=== PATIENT | male | born 1950 | race Caucasian/White ===

== ENCOUNTER → 2016-12-12 | Outpatient (CLI) | payer OTHER ==
[2013-07-03 11:29] VITALS: BP 91/77
[~2016-12-12] MED LIST: LEXISCAN IV ONE
== END ==
LOC: RAD 08:31
PROVIDERS: ATTEND Internal Medicine Cardiovascular Disease
DX: I25.10 Atherosclerotic heart disease of native coronary artery without angina pectoris (principal)
CPT/HCPCS: 78452; 93017; A4222; A9502; J2785

== ENCOUNTER → 2017-09-27 | Outpatient (CLI) | payer OTHER ==
[2013-07-03 11:29] VITALS: BP 91/77
== END ==
LOC: RAD 14:02
PROVIDERS: ATTEND Physician Assistant
DX: R07.89 Other chest pain (principal)
CPT/HCPCS: 93306

== ENCOUNTER 2018-05-12 16:56 | Inpatient (IN) ==
[2018-05-12] MEDS ORDERED: TORADOL 60 MG VIAL IM ONE (17:10)
[2018-05-12] MEDS ORDERED: TORADOL 60 MG VIAL ONE (17:11)
--- NOTE | 2018-05-12 17:15 | DR.GENAD ---
HPI Time Seen Time Seen by Provider: 05/12/18 17:09 PCP Primary Care Physician: ROSEMARIE Turk Complaint/Symptoms Chief Complaint:: PT STATES HE HAD A SYNCOPAL EPISODE IN BATHROOM THIS AFTERNOON WHICH LED HIM TO FALL ONTO HIS LEFT HIP. PT STATES HE PASSED COMPLETELY OUT BUT DOESN'T THINK HE WAS OUT LONG. PT C/O SEVERE PAIN INTO LEFT HIP RATED 10/10 Source History Provided: Patient Mode of Arrival Mode of Arrival: EMS Timing Onset of Chief Complaint: 05/12/18 PMH PMH Past Medical History: Yes Past Medical History: Coronary Artery Disease Past Medical History Comment: TIA, SYNCOPE Past Surgical History: Yes Surgical History: CABG/Valve Surgery and Cholecystectomy Past Surgical History Comment: RIGHT HAMMERTOE SURGERY, BACK SURGERY,HERNIA REPAIR Family History History of Family Medical Conditions: Yes Family Medical History: Cancer, [place], Coronary Artery Disease and Hypertension Social History Does patient currently use any type of tobacco product: No Have you used tobacco products in the last 12 months: No Type of Tobacco Use: None Does any household member use tobacco: No Alcohol Use: None Do you use any recreational Drugs:: No Lives With: Family Lives Where: Home infectious screening In the last 2 months have you had wt loss of >10#?: NO Have you had fever, night sweats or hemotysis?: No Have you traveled outside the country in the last 6 months?: No Isolation: Standard PE Vital Signs Vitals: Temperature 98.6 F Pulse Rate [Right] 76 Pulse Rate [Left Radial] 66 Pulse Rate 60 Respiratory Rate 18 Blood Pressure [Left Arm] 160/86 Blood Pressure [Right Arm] 178/84 Blood Pressure 122/73 O2 Sat by Pulse Oximetry 90 General Limitations: No Limitations General Appearance: Alert, In No Apparent Distress, Anxious and In Distress Head Head Exam: Normal Inspection Eyes Eye exam: Normal Appearance, PERRL, EOMI and Miosis ENT ENT Exam: Normal Exam, Normal Oropharynx, Mucous Membranes Moist, Mucous Membranes Dry and TM's Normal Bilaterally External Ear Exam: Normal External Inspection TM/Canal Exam: Bilateral: Normal Nose Exam: Normal Nose Exam and Abrasion Mouth Exam: Normal Inspection Throat Exam: Normal Inspection and Tonsillar Erythema Neck Neck Exam: Normal Inspection and Full ROM; negative Tenderness Chest Chest Inspection: Normal Inspection Respiratory Respiratory Exam: Normal Lung Sounds Bilat and Accessory Muscle Use Respiratory Exam: Bilateral: Clear to Auscultation Cardiovascular Cardiovascular Exam: Regular Rate and Normal Rhythm Abdominal Exam Abdominal Exam: Normal Inspection, Normal Bowel Sounds and Hyperactive Bowel Sounds Abdominal Tenderness: negative RUQ, RLQ and LUQ Extremities Extremities Exam: Tenderness (left hip) Back Back Exam: Normal Inspection Neurologic Neurological Exam: Alert and Oriented X3 Psychiatric Psychiatric Exam: Normal Affect and Normal Mood Skin Skin Exam: Warm, Dry, Intact, Normal Color and Rash COURSE Treatment Treatment: Toradol 60mg IM Consultation Called: 19:00 Consultation Comments: Dr Garcia agreed to admit for further evaluation and treatment ROR Labs Reviewed Laboratory Results Reviewed?: Yes Result Diagrams: 05/14/18 04:45 05/14/18 04:45 Laboratory: WBC 7.4 X10^3/uL (3.6-10.0) 05/14/18 04:45 RBC 3.75 X10^6/uL (4.7-6.0) L 05/14/18 04:45 Hgb 11.2 g/dL (13.5-18.0) L 05/14/18 04:45 Hct 31.8 % (42.0-54.0) L 05/14/18 04:45 MCV 84.9 fL (80.0-100.0) 05/14/18 04:45 MCH 30.0 pg (27.0-34.0) 05/14/18 04:45 MCHC 35.3 g/dL (33.0-35.0) H 05/14/18 04:45 RDW 13.6 % (11.6-16.5) 05/14/18 04:45 Plt Count 92 X10^3/uL (150.0-450.0) L 05/14/18 04:45 MPV 9.6 fL (7.4-11.0) 05/14/18 04:45 Neut % (Auto) 64.2 % (42.0-75.0) 05/14/18 04:45 Lymph % (Auto) 21.3 % (21.0-51.0) 05/14/18 04:45 Shannon % (Auto) 8.7 % (0.0-13.0) 05/14/18 04:45 Eos % (Auto) 4.8 % (0.9-2.9) H 05/14/18 04:45 Baso % (Auto) 1.0 % (0.2-1.0) 05/14/18 04:45 Neut # (Auto) 4.7 x10^3/uL (2.2-4.8) 05/14/18 04:45 Lymph # (Auto) 1.6 X10^3/uL (1.3-2.9) 05/14/18 04:45 Shannon # (Auto) 0.6 x10^3/uL (0.3-0.8) 05/14/18 04:45 Eos # (Auto) 0.4 x10^3/uL (0.0-0.2) H 05/14/18 04:45 Baso # (Auto) 0.1 X10^3/uL (0.0-0.1) 05/14/18 04:45 Absolute Nucleated RBC 0.0 /100WBC 05/14/18 04:45 INR Target Range - 05/13/18 21:25 INR 1.13 (0.8-1.3) 05/13/18 21:25 APTT 28.7 SECONDS (22.9-36.5) 05/13/18 21:25 PTT Comment - 05/13/18 21:25 Sodium 142 mmol/L (136-145) 05/14/18 04:45 Corrected Sodium 142 mmol/L (136-145) 05/14/18 04:45 Potassium 4.0 mmol/L (3.5-5.1) 05/14/18 04:45 Chloride 110 mmol/L (98-107) H 05/14/18 04:45 Carbon Dioxide 24.0 mmol/L (21-32) 05/14/18 04:45 BUN 11 mg/dL (7-18) 05/14/18 04:45 Creatinine 0.92 mg/dL (0.70-1.30) 05/14/18 04:45 Est GFR (MDRD) Af Amer > 60 (>60) 05/14/18 04:45 Est GFR (MDRD) Non-Af > 60 (>60) 05/14/18 04:45 Glucose 118 mg/dL (65-99) H 05/14/18 04:45 Calcium 8.0 mg/dL (8.5-10.1) L 05/14/18 04:45 Corrected Calcium 9.0 mg/dL (8.5-10.1) 05/14/18 04:45 Magnesium 1.9 mg/dL (1.7-2.9) 05/14/18 04:45 Total Bilirubin 0.40 mg/dL (0.2-1.0) 05/14/18 04:45 AST 14 Units/L (15-37) L 05/14/18 04:45 ALT 15 Units/L (12-78) 05/14/18 04:45 Alkaline Phosphatase 64 Units/L (46-116) 05/14/18 04:45 Creatine Kinase 105 Units/L (39-308) 05/13/18 21:25 CK-MB (CK-2) 1.1 ng/mL (0-4.0) 05/13/18 21:25 CK/CKMB % Calc 1.1 % (<4) 05/13/18 21:25 Troponin I < 0.02 ng/mL (0-1.5) 05/13/18 21:25 Total Protein 5.8 g/dL (6.4-8.2) L 05/14/18 04:45 Albumin 2.8 g/dL (3.4-5.0) L 05/14/18 04:45 Globulin 3.0 g/dL (2.5-4.5) 05/14/18 04:45 Albumin/Globulin Ratio 0.9 Ratio (1.1-2.1) L 05/14/18 04:45 Blood Type A POSITIVE 05/13/18 21:25 Antibody Screen Negative 05/13/18 21:25 Crossmatch See Detail 05/13/18 21:25 XRAY XRAY Findings: Fracture lesser trochanter left femur Diagnosis Discharge Problem: Closed fracture of lesser trochanter of left femur
[2018-05-12] MEDS ORDERED: TORADOL 60 MG VIAL IVP ONE (17:16)
[2018-05-12] MEDS ORDERED: NS 1000 ML 1,000 ML ONE (17:30)
[2018-05-12] MEDS: NS 1000 ML 1,000 ML IV SCH (17:49)
[2018-05-12 18:03] LABS: BASOPHILS # (AUTO) 0.1 X10^3/uL (0.0-0.1); BASOPHILS % (AUTO) 0.8 % (0.2-1.0); EOSINOPHILS # (AUTO) 0.2 x10^3/uL (0.0-0.2); EOSINOPHILS % (AUTO) 2.2 % (0.9-2.9); HEMATOCRIT 37.9 % (42.0-54.0); HEMOGLOBIN 13.5 g/dL (13.5-18.0); LYMPHOCYTES # (AUTO) 1.2 X10^3/uL (1.3-2.9); LYMPHOCYTES % (AUTO) 15.2 % (21.0-51.0); MEAN CORPUSCULAR HGB CONC 35.7 g/dL (33.0-35.0); MEAN CORPUSCULAR VOLUME 83.9 fL (80.0-100.0); MEAN PLATELET VOLUME 9.4 fL (7.4-11.0); MONOCYTES # (AUTO) 0.5 x10^3/uL (0.3-0.8); MONOCYTES % (AUTO) 6.1 % (0.0-13.0); NEUTROPHILS # (AUTO) 5.9 x10^3/uL (2.2-4.8); NEUTROPHILS % (AUTO) 75.7 % (42.0-75.0); PLATELET COUNT 131 X10^3/uL (150.0-450.0); RED BLOOD COUNT 4.51 X10^6/uL (4.7-6.0); RED CELL DISTRIBUTION WIDTH 13.6 % (11.6-16.5); WHITE BLOOD COUNT 7.9 X10^3/uL (3.6-10.0)
[2018-05-12 18:15] LABS: ALANINE AMINOTRANSFERASE 21 Units/L (12-78); ALBUMIN 3.7 g/dL (3.4-5.0); ALKALINE PHOSPHATASE 82 Units/L (46-116); ASPARTATE AMINO TRANSFERASE 17 Units/L (15-37); BLOOD UREA NITROGEN 13 mg/dL (7-18); CALCIUM 8.7 mg/dL (8.5-10.1); CARBON DIOXIDE 25.8 mmol/L (21-32); CHLORIDE 107 mmol/L (98-107); COR NA(FOR HYPERGLY) 144 mmol/L (136-145); CREATININE 1.29 mg/dL (0.70-1.30); SODIUM 143 mmol/L (136-145); TOTAL PROTEIN 6.7 g/dL (6.4-8.2); eGFR NON BLACK RACES 59 (>60)
--- NOTE | 2018-05-12 18:30 | RAD ---
Examination: Left femur, four views History: Fell Findings there is slight displacement and apparent fracture of the lesser trochanter of the femur. T his may be acute. The femoral head is in normal position. Narrowing of the joint space is compatible with age. Impression: Suspect acute minimally displaced fracture left lesser trochanter. Dedicated hip examinat ion has been requested and will be reported separately. Reported By:
--- NOTE | 2018-05-12 18:31 | RAD ---
Examination: Left hip, two views History: Fell Findings: There is an apparently acute fracture of the lesser trochanter of the femur with 6.0 mm dis placement of cortical fragment. The femoral head is in normal position. Degenerative narrowing of bonnie nt spaces present. Impression: Fracture lesser trochanter left femur. Reported By:
[2018-05-12] MEDS ORDERED: MORPHINE SULFATE INJ 4 MG ONE (18:43)
[2018-05-12] MEDS ORDERED: MORPHINE SULFATE INJ 4 MG IVP ONE (18:44)
[2018-05-12] MEDS: MORPHINE SULFATE INJ 4 MG IVP PRN (21:31)
[2018-05-12 23:06] VITALS: BMI 20.6
[2018-05-13] MEDS: NS 1000 ML 1,000 ML IV SCH ×5 (01:48→18:07)
[2018-05-13] MEDS: MORPHINE SULFATE INJ 4 MG IVP PRN ×5 (01:50→18:28)
[2018-05-13 13:57] LABS: CKMB % 1.3 % (<4); CREATINE KINASE 87 Units/L (39-308); CREATINE KINASE MB 1.1 ng/mL (0-4.0); TROPONIN I < 0.02 ng/mL (0-1.5)
[2018-05-13] MEDS: NEURONTIN CAP 100 MG PO SCH ×2 (14:14→21:23)
[2018-05-13] MEDS: PROzac PO SCH (14:14)
[2018-05-13] MEDS: TOPROL XL PO SCH (14:14)
[2018-05-13] MEDS ORDERED: ROBINUL ONE (14:53)
--- NOTE | 2018-05-13 17:21 | CT ---
HISTORY: Left hip fracture. Study: CT left hip without contrast Comparison: Left hip series dated May 12, 2018. Technique: Multiple axial images of the left hip without administration of IV contrast. Sagittal and coronal reformats were performed and reviewed. Dose reduction techniques including Automated Exposur e Control (AEC) and adjustment of mA and kV were utilized. Findings: Minimally displaced left intertrochanteric hip fracture. The left femoral head is within the acetabul um. Surrounding soft tissue swelling and hip effusion. Remaining osseous structures appear intact. Th e visualized soft tissues are unremarkable. IMPRESSION: Minimally displaced left intertrochanteric hip fracture. Reported By:
[2018-05-13] MEDS ORDERED: MORPHINE SULFATE INJ 4 MG IVP ONE (21:10)
[2018-05-13 21:45] LABS: BASOPHILS # (AUTO) 0.1 X10^3/uL (0.0-0.1); BASOPHILS % (AUTO) 0.8 % (0.2-1.0); EOSINOPHILS # (AUTO) 0.3 x10^3/uL (0.0-0.2); EOSINOPHILS % (AUTO) 4.4 % (0.9-2.9); LYMPHOCYTES # (AUTO) 0.9 X10^3/uL (1.3-2.9); LYMPHOCYTES % (AUTO) 12.5 % (21.0-51.0); MEAN CORPUSCULAR HEMOGLOBIN 30.1 pg (27.0-34.0); MEAN CORPUSCULAR HGB CONC 35.4 g/dL (33.0-35.0); MEAN CORPUSCULAR VOLUME 85.1 fL (80.0-100.0); MEAN PLATELET VOLUME 9.6 fL (7.4-11.0); MONOCYTES # (AUTO) 0.5 x10^3/uL (0.3-0.8); MONOCYTES % (AUTO) 7.1 % (0.0-13.0); NEUTROPHILS # (AUTO) 5.2 x10^3/uL (2.2-4.8); NEUTROPHILS % (AUTO) 75.2 % (42.0-75.0); PLATELET COUNT 103 X10^3/uL (150.0-450.0); RED CELL DISTRIBUTION WIDTH 13.8 % (11.6-16.5); WHITE BLOOD COUNT 6.9 X10^3/uL (3.6-10.0)
[2018-05-13 22:07] LABS: ALANINE AMINOTRANSFERASE 17 Units/L (12-78); ALBUMIN 3.3 g/dL (3.4-5.0); ALKALINE PHOSPHATASE 78 Units/L (46-116); ASPARTATE AMINO TRANSFERASE 15 Units/L (15-37); BLOOD UREA NITROGEN 14 mg/dL (7-18); CALCIUM 8.1 mg/dL (8.5-10.1); CARBON DIOXIDE 27.4 mmol/L (21-32); CHLORIDE 109 mmol/L (98-107); COR CA(FOR HYPOALB) 8.7 mg/dL (8.5-10.1); COR NA(FOR HYPERGLY) 145 mmol/L (136-145); CREATININE 1.12 mg/dL (0.70-1.30); SODIUM 144 mmol/L (136-145); TOTAL PROTEIN 6.7 g/dL (6.4-8.2); eGFR NON BLACK RACES > 60 (>60)
[2018-05-13] MEDS ORDERED: POTASSIUM CHL 40 MEQ/NS 0.45% 500 ML IV PRN (22:15)
[2018-05-13] MEDS ORDERED: POTASSIUM CHLORIDE LIQ 20 MEQ UDC PO PRN (22:15)
[2018-05-13] MEDS ORDERED: K-RIDER 10 MEQ/NS 100 ML 10 MEQ/100 ML BAG IV PRN (22:15)
[2018-05-13] MEDS ORDERED: POTASSIUM CHL 60 MEQ/NS 0.45% 500 ML IV PRN (22:15)
[2018-05-13] MEDS ORDERED: K-LYTE EFFERVESCENT PO PRN (22:15)
[2018-05-13] MEDS ORDERED: K-DUR TAB 20 MEQ PO ONE (22:18)
[2018-05-13 22:35] LABS: CKMB % 1.1 % (<4); CREATINE KINASE 105 Units/L (39-308); CREATINE KINASE MB 1.1 ng/mL (0-4.0); TROPONIN I < 0.02 ng/mL (0-1.5)
[2018-05-14] MEDS: MORPHINE SULFATE INJ 4 MG IVP PRN ×2 (01:23→05:30)
[2018-05-14] MEDS: NS 1000 ML 1,000 ML IV SCH ×3 (01:30→18:34)
[2018-05-14] MEDS: MAGNESIUM SULFATE 1 GRAM/100 mL PREMIX 1 GM/100 ML BAG IV PRN ×2 (04:00→05:30)
[2018-05-14 05:04] LABS: BASOPHILS # (AUTO) 0.1 X10^3/uL (0.0-0.1); EOSINOPHILS # (AUTO) 0.4 x10^3/uL (0.0-0.2); EOSINOPHILS % (AUTO) 4.8 % (0.9-2.9); HEMATOCRIT 31.8 % (42.0-54.0); HEMOGLOBIN 11.2 g/dL (13.5-18.0); LYMPHOCYTES # (AUTO) 1.6 X10^3/uL (1.3-2.9); LYMPHOCYTES % (AUTO) 21.3 % (21.0-51.0); MEAN CORPUSCULAR HGB CONC 35.3 g/dL (33.0-35.0); MEAN CORPUSCULAR VOLUME 84.9 fL (80.0-100.0); MEAN PLATELET VOLUME 9.6 fL (7.4-11.0); MONOCYTES # (AUTO) 0.6 x10^3/uL (0.3-0.8); MONOCYTES % (AUTO) 8.7 % (0.0-13.0); NEUTROPHILS # (AUTO) 4.7 x10^3/uL (2.2-4.8); NEUTROPHILS % (AUTO) 64.2 % (42.0-75.0); PLATELET COUNT 92 X10^3/uL (150.0-450.0); RED BLOOD COUNT 3.75 X10^6/uL (4.7-6.0); RED CELL DISTRIBUTION WIDTH 13.6 % (11.6-16.5); WHITE BLOOD COUNT 7.4 X10^3/uL (3.6-10.0)
[2018-05-14 05:19] LABS: ALANINE AMINOTRANSFERASE 15 Units/L (12-78); ALBUMIN 2.8 g/dL (3.4-5.0); ALKALINE PHOSPHATASE 64 Units/L (46-116); ASPARTATE AMINO TRANSFERASE 14 Units/L (15-37); BLOOD UREA NITROGEN 11 mg/dL (7-18); CHLORIDE 110 mmol/L (98-107); COR NA(FOR HYPERGLY) 142 mmol/L (136-145); CREATININE 0.92 mg/dL (0.70-1.30); SODIUM 142 mmol/L (136-145); TOTAL PROTEIN 5.8 g/dL (6.4-8.2); eGFR NON BLACK RACES > 60 (>60)
[2018-05-14] MEDS ORDERED: DILAUDID INJ ONE ×2 (08:46→10:56)
[2018-05-14] MEDS ORDERED: FENTANYL INJ 250 mcg ONE (08:46)
[2018-05-14] MEDS ORDERED: ANCEF 1 GRAM IV PREMIX* 1 G/50 ML BAG IV ONE (08:49)
[2018-05-14] MEDS ORDERED: DIPRIVAN VIAL ONE (09:01)
[2018-05-14] MEDS ORDERED: VERSED ONE (09:01)
[2018-05-14] MEDS ORDERED: ZOFRAN INJ 4 MG VIAL ONE (09:01)
[2018-05-14] MEDS ORDERED: ULTANE GAS IN ONE (09:01)
[2018-05-14] MEDS ORDERED: QUELICIN (OR ANECTINE) ONE (09:01)
[2018-05-14] MEDS ORDERED: NORCURON INJ 10 MG VIAL ONE (09:01)
[2018-05-14] MEDS ORDERED: TORADOL 30 MG VIAL ONE (09:01)
--- NOTE | 2018-05-14 09:28 | DR.CONSULT ---
Consult - Consultation for Day of: Date: 05/14/18 - Chief Complaint Chief Complaint: left hip frcature - History of Present Illness History of Present Illness: fall and left hip fracture. admitted under medical. consultaion placed for ms. CT and Xrays left IT fracture. - Past Medical History Past Medical History: Coronary Artery Disease - Past Surgical History Surgical History: CABG/Valve Surgery, Cholecystectomy - Family History Family Medical History: Cancer, [place], Coronary Artery Disease, Hypertension - Social History Does patient currently use any type of tobacco product: No Have you used tobacco products in the last 12 months: No Type of Tobacco Use: None How many years tobacco product used: 30 Does any household member use tobacco: No Alcohol Use: None Drug Use: None - Medications Home Medications: clonazepam Allergy (Verified 05/12/18 17:05) CONTINUE taking the following medications amlodipine 1 tab PO DAILY 05/13/18 [History] pregabalin [Lyrica] 1 cap PO BID 05/13/18 [History] tizanidine 1 tab PO BID PRN 05/13/18 [History] - Physical Exam Vital Signs: Temperature 98.6 F Pulse Rate [Right] 76 Pulse Rate [Left Radial] 66 Pulse Rate 60 Respiratory Rate 18 Blood Pressure [Left Arm] 160/86 Blood Pressure [Right Arm] 178/84 Blood Pressure 122/73 O2 Sat by Pulse Oximetry 90 Musculoskeletal: Right, Hip, Swelling, Tender - Plan Plan: lt hip gamma nail. pre anesthesia. medical clearance given - Allergies Allergies/Adverse Reactions: Allergies Allergy/AdvReac Type Severity Reaction Status Date / Time clonazepam Allergy Verified 05/12/18 17:05
[2018-05-14] MEDS ORDERED: BENADRYL INJ 50 MG VIAL IVP PRN (10:56)
[2018-05-14] MEDS ORDERED: PHENERGAN INJ 25 MG IVP PRN (10:56)
[2018-05-14] MEDS ORDERED: REGLAN INJ 10 MG VIAL IVP PRN (10:56)
[2018-05-14] MEDS ORDERED: ZOFRAN INJ 4 MG VIAL IVP PRN (10:56)
[2018-05-14] MEDS: DILAUDID INJ IVP PRN ×2 (10:57→11:10)
[2018-05-14] MEDS ORDERED: NS IRRIGATION 1000 ML 1,000 ML with BACITRACIN VIAL 50,000 UNIT, POLYMYXIN B SULFATE 50... IR NR ×3 (11:00)
[2018-05-14] MEDS: MORPHINE SULFATE PCA 30 MG IV PRN (12:01)
[2018-05-14] MEDS: PROzac PO SCH (12:18)
[2018-05-14] MEDS: NEURONTIN CAP 100 MG PO SCH ×2 (12:18→20:55)
[2018-05-14] MEDS: NORVASC TAB 10 MG PO SCH (12:18)
[2018-05-14] MEDS: TOPROL XL PO SCH (12:18)
--- NOTE | 2018-05-14 12:27 | RAD ---
History: Postop left hip fracture Study: AP pelvis and frog-leg lateral left hip Findings: There is a intertrochanteric fracture with at least 1 cm of lateral displacement of the fem oral shaft relative to the femoral neck. There is a compression nail and intramedullary alejandra in place for internal fixation. Impression: Satisfactory internal fixation of the left intertrochanteric hip fracture Reported By:
--- NOTE | 2018-05-14 12:28 | RAD ---
History: Fever Study: Portable AP chest Comparison: April 21, 2016 Findings: The heart size is normal status post old sternotomy for coronary artery bypass grafting jacqueline tamie. There are mildly increased chronic interstitial lung markings unchanged. There is no lung conso lidation or atelectasis or pleural effusion. Impression: No acute cardiopulmonary disease Reported By:
--- NOTE | 2018-05-14 13:20 | PCM.PROG ---
Progress Note - Progress Note for Day of Date of Exam: 05/14/18 - Subjective Subjective: 67 WM ER ADMISSION AFTER PRESENTING WITH FALL AND ACUTE LEFT HIP FRACTURE. PT IS NPO FOR HIP FRACTURE REPAIR THIS AM IN THE OR PER DR NAVA. PT PAIN CONTROLLED WITH CURRENT REGIMEN, WILL FOLLOW POST OP CARE INSTRUCTIONS. REPEAT AM LABS. - Past Medical Family Social History Past Med/Fam/Surg Hx: No changes since H&P Allergies: Allergies clonazepam Allergy (Verified 05/12/18 17:05) - Review of Systems ROS: No change since H&P - Vital Signs and I&O's Vital Signs: Temperature 98.1 F Pulse Rate [Right] 74 Pulse Rate [Left Radial] 66 Pulse Rate 86 Respiratory Rate 18 Blood Pressure [Left Arm] 160/86 Blood Pressure [Right Arm] 186/91 Blood Pressure 179/96 O2 Sat by Pulse Oximetry 96 Intake and Output: Intake & Output 05/12/18 05/13/18 05/14/18 05/15/18 11:59 11:59 11:59 11:59 Intake Total 1582 / 1582 2430 / 2430 Output Total 0 / 0 1250 / 1250 Balance 1582 / 1582 1180 / 1180 - Physical Exam Oriented: Normal Eyes: Normal Ear: Normal Nose: Normal Throat: Normal Respiratory: Normal Cardiovascular: Normal : Normal Auscultation: Bowel Sounds: Normal Tenderness: Normal Skin: Decreased Turgur, Bruising Musculoskeletal: Right, Hip, Swelling, Tender Mood Description: Calm Speech Pattern: Clear, Appropriate - Laboratory and Diagnostics Result Diagrams: 05/14/18 04:45 05/14/18 04:45 Labs: Laboratory WBC 7.4 X10^3/uL (3.6-10.0) 05/14/18 04:45 RBC 3.75 X10^6/uL (4.7-6.0) L 05/14/18 04:45 Hgb 11.2 g/dL (13.5-18.0) L 05/14/18 04:45 Hct 31.8 % (42.0-54.0) L 05/14/18 04:45 MCV 84.9 fL (80.0-100.0) 05/14/18 04:45 MCH 30.0 pg (27.0-34.0) 05/14/18 04:45 MCHC 35.3 g/dL (33.0-35.0) H 05/14/18 04:45 RDW 13.6 % (11.6-16.5) 05/14/18 04:45 Plt Count 92 X10^3/uL (150.0-450.0) L 05/14/18 04:45 MPV 9.6 fL (7.4-11.0) 05/14/18 04:45 Neut % (Auto) 64.2 % (42.0-75.0) 05/14/18 04:45 Lymph % (Auto) 21.3 % (21.0-51.0) 05/14/18 04:45 Pitkin % (Auto) 8.7 % (0.0-13.0) 05/14/18 04:45 Eos % (Auto) 4.8 % (0.9-2.9) H 05/14/18 04:45 Baso % (Auto) 1.0 % (0.2-1.0) 05/14/18 04:45 Neut # (Auto) 4.7 x10^3/uL (2.2-4.8) 05/14/18 04:45 Lymph # (Auto) 1.6 X10^3/uL (1.3-2.9) 05/14/18 04:45 Pitkin # (Auto) 0.6 x10^3/uL (0.3-0.8) 05/14/18 04:45 Eos # (Auto) 0.4 x10^3/uL (0.0-0.2) H 05/14/18 04:45 Baso # (Auto) 0.1 X10^3/uL (0.0-0.1) 05/14/18 04:45 Absolute Nucleated RBC 0.0 /100WBC 05/14/18 04:45 INR Target Range - 05/13/18 21:25 INR 1.13 (0.8-1.3) 05/13/18 21:25 APTT 28.7 SECONDS (22.9-36.5) 05/13/18 21:25 PTT Comment - 05/13/18 21:25 Sodium 142 mmol/L (136-145) 05/14/18 04:45 Corrected Sodium 142 mmol/L (136-145) 05/14/18 04:45 Potassium 4.0 mmol/L (3.5-5.1) 05/14/18 04:45 Chloride 110 mmol/L (98-107) H 05/14/18 04:45 Carbon Dioxide 24.0 mmol/L (21-32) 05/14/18 04:45 BUN 11 mg/dL (7-18) 05/14/18 04:45 Creatinine 0.92 mg/dL (0.70-1.30) 05/14/18 04:45 Est GFR (MDRD) Af Amer > 60 (>60) 05/14/18 04:45 Est GFR (MDRD) Non-Af > 60 (>60) 05/14/18 04:45 Glucose 118 mg/dL (65-99) H 05/14/18 04:45 Calcium 8.0 mg/dL (8.5-10.1) L 05/14/18 04:45 Corrected Calcium 9.0 mg/dL (8.5-10.1) 05/14/18 04:45 Magnesium 1.9 mg/dL (1.7-2.9) 05/14/18 04:45 Total Bilirubin 0.40 mg/dL (0.2-1.0) 05/14/18 04:45 AST 14 Units/L (15-37) L 05/14/18 04:45 ALT 15 Units/L (12-78) 05/14/18 04:45 Alkaline Phosphatase 64 Units/L (46-116) 05/14/18 04:45 Creatine Kinase 105 Units/L (39-308) 05/13/18 21:25 CK-MB (CK-2) 1.1 ng/mL (0-4.0) 05/13/18 21:25 CK/CKMB % Calc 1.1 % (<4) 05/13/18 21:25 Troponin I < 0.02 ng/mL (0-1.5) 05/13/18 21:25 Total Protein 5.8 g/dL (6.4-8.2) L 05/14/18 04:45 Albumin 2.8 g/dL (3.4-5.0) L 05/14/18 04:45 Globulin 3.0 g/dL (2.5-4.5) 05/14/18 04:45 Albumin/Globulin Ratio 0.9 Ratio (1.1-2.1) L 05/14/18 04:45 Blood Type A POSITIVE 05/13/18 21:25 Antibody Screen Negative 05/13/18 21:25 Crossmatch See Detail 05/13/18 21:25 - Plan (1) Closed fracture of lesser trochanter of left femur Status: Acute Qualifiers: Encounter type: initial encounter Fracture alignment: displaced Qualified Code(s): S72.122A - Displaced fracture of lesser trochanter of left femur, initial encounter for closed fracture Plan: ORHTO CONSULT. NPO FOR SUGERY THIS AM, BP CONTROL. AM LABS. PAIN CONTROL, POST OP PHYSICAL THERAPY (2) Coronary artery disease Status: Chronic (3) Essential hypertension Status: Chronic (4) Dyslipidemia Status: Chronic (5) Depression Status: Chronic
[2018-05-14] MEDS: LOVENOX INJ 30 MG SYR SC SCH (20:54)
[2018-05-14] MEDS: LYRICA CAP 75 MG PO SCH (20:55)
[2018-05-14] MEDS: LIPITOR TAB 40 MG PO SCH (20:55)
[2018-05-14] MEDS: BENADRYL CAP/TAB 25 MG PO PRN (21:00)
[2018-05-15] MEDS: TYLENOL 325 MG TAB PO PRN ×2 (00:17→20:31)
[2018-05-15] MEDS: NS 1000 ML 1,000 ML IV SCH ×3 (00:35→17:46)
[2018-05-15 06:07] LABS: BASOPHILS % (AUTO) 0.5 % (0.2-1.0); EOSINOPHILS # (AUTO) 0.3 x10^3/uL (0.0-0.2); EOSINOPHILS % (AUTO) 4.1 % (0.9-2.9); HEMATOCRIT 26.2 % (42.0-54.0); HEMOGLOBIN 9.4 g/dL (13.5-18.0); LYMPHOCYTES # (AUTO) 1.6 X10^3/uL (1.3-2.9); LYMPHOCYTES % (AUTO) 19.4 % (21.0-51.0); MEAN CORPUSCULAR HEMOGLOBIN 30.5 pg (27.0-34.0); MEAN CORPUSCULAR HGB CONC 35.8 g/dL (33.0-35.0); MEAN CORPUSCULAR VOLUME 85.1 fL (80.0-100.0); MEAN PLATELET VOLUME 10.1 fL (7.4-11.0); MONOCYTES # (AUTO) 0.9 x10^3/uL (0.3-0.8); MONOCYTES % (AUTO) 10.9 % (0.0-13.0); NEUTROPHILS # (AUTO) 5.5 x10^3/uL (2.2-4.8); NEUTROPHILS % (AUTO) 65.1 % (42.0-75.0); PLATELET COUNT 97 X10^3/uL (150.0-450.0); RED BLOOD COUNT 3.08 X10^6/uL (4.7-6.0); RED CELL DISTRIBUTION WIDTH 13.4 % (11.6-16.5); WHITE BLOOD COUNT 8.5 X10^3/uL (3.6-10.0)
[2018-05-15 06:29] LABS: BLOOD UREA NITROGEN 12 mg/dL (7-18); CALCIUM 7.8 mg/dL (8.5-10.1); CARBON DIOXIDE 23.8 mmol/L (21-32); CHLORIDE 109 mmol/L (98-107); COR NA(FOR HYPERGLY) 141 mmol/L (136-145); CREATININE 0.94 mg/dL (0.70-1.30); SODIUM 141 mmol/L (136-145); eGFR NON BLACK RACES > 60 (>60)
[2018-05-15] MEDS: LOVENOX INJ 30 MG SYR SC SCH ×2 (08:24→20:32)
[2018-05-15] MEDS: LYRICA CAP 75 MG PO SCH ×2 (08:25→20:32)
[2018-05-15] MEDS: TOPROL XL PO SCH (08:25)
[2018-05-15] MEDS: NORVASC TAB 10 MG PO SCH (08:25)
[2018-05-15] MEDS: NEURONTIN CAP 100 MG PO SCH ×2 (08:25→20:32)
[2018-05-15] MEDS: PROzac PO SCH (08:25)
--- NOTE | 2018-05-15 10:06 | OR.GENERIC ---
Post-Op Note Generic - Post-Op Note Operative Report: PREOPERATIVE DIAGNOSIS: left inter- trochanteric femur fracture, osteoporotic, pathological fracture. POSTOPERATIVE DIAGNOSIS: left inter- trochanteric femur fracture, osteoporotic , pathological fracture. OPERATION: LEFT intertrochanteric fracture treated with Intramedullary alejandra in the left hip Implants used: Gamma 3 system, Axel 140 X 10 mm short nail, 125, 110 mm hip screw COMPLICATIONS: None. DATE OF SURGERY: 05/14/18 TOURNIQUET TIME: None. ESTIMATED BLOOD LOSS: 50 mL. ANESTHESIA: General. INDICATIONS: The patient suffered a trip and fall at his home. At which time he was taken to the emergency room with pain in the lower extremities. He was diagnosed with left intertrochanteric fracture, now was asked to consult. the x- rays was reported only as lesser trochanter fracture. What I could see a component of intertrochanteric fracture. CT was ordered. It showed an incomplete intertrochanteric fracture.With this diagnosis, he was indicated the above-noted procedure. This procedure as well as alternatives to this procedure was discussed at length with the patient and her son, who has the power of barber shop operator, and they understood them well. Risks and benefits were also discussed. Risks include bleeding, infection, damage to blood vessels, damage to nerves, risk of further surgery, chronic pain , restricted range of motion, risk of continued discomfort, risk of malunion, risk of nonunion, risk of need for further reconstructive procedures, risk of need for altered activities and altered gait, avascular necrosis, nonunion, malunion, penetration of the hip screw into the hip joint, implant failure, need of conversion to total hip, risk of blood clots, pulmonary embolism, myocardial infarction, and risk of were discussed. She understood these well and consented, and the son signed the consent for the procedure as described. DESCRIPTION OF PROCEDURE: The patient was placed on the operating table and general anesthesia was achieved. The patient was then placed in fracture table and the RIGHT leg was placed in a well-leg reynoso. Obtained closed reduction by applying inline traction first to distract fracture, then adduct and internally rotate leg. Checked in AP and lateral fluoroscopy control to get anatomical alignment. At this point, the left hip and left lower extremity was then prepped and draped in the usual sterile manner. An incision about 3 cm made 4 cm above the greater trochanter tip. Dissection taken through the TFL and G medius. A guidepin was placed over the appropriate starting point which is at the medial tip of greater trochanter. The guidepin was slowly advanced into the proximal canal across the fracture site and fluoroscopy confirmed intramedullary placement of the guidepin. The soft tissue protector was used throughout the procedure. Proximal conical reaming done with the entry reamer. At this time a ball-tipped guidewire was exchanged over an exchange tube. AP and lateral fluoroscopy was checked to confirm the placement of the intramedullary position of the guide wire tip. Measurement was done. Sequential reaming of the wrist to the femur was completed to 11.5. Fluoroscopy was used during the Reaming. The appropriate size nail was built on the back table and made sure that the targeting guides aligned with the holes in the nail. The nail was advanced over the guidewire and fully seated. Ball-tipped guidewire was taken out. Using the trocar and sleeve the guidepin for lag screw was in inserted next. A guidewire was inserted and felt to be in proper position, in the posterior aspect of the femoral head, lateral, and the center position on AP. Reaming was done of the guide wire and a hip screw was inserted. Traction was removed and compression across the fracture site noted. Distal locking performed freehand. We did a near anatomical alignment to the fracture site and all hardware was properly fixed. Proper size and fit was noted. Excellent bony approximation was noted. At this point, both wounds were thoroughly irrigated, hemostasis confirmed, and closure was then begun. The fascial layers were then reapproximated using #1 Vicryl in a figure-of- eight manner, the subcutaneous tissues were reapproximated in layers using #1 and 2-0 Vicryl sutures, and the skin was reapproximated with [place]. The area was then infiltrated with a mixture of a 0.25% Marcaine with Epinephrine and 1% plain lidocaine. Sterile dressing was then applied. No complication was encountered throughout the procedure. The patient tolerated the procedure well. The patient was taken to the recovery room in stable condition. Postoperative x -rays were obtained with the knee in unremarkable reduction of the fracture and well aligned Gamma nail. I did discuss with the family after the surgery. Postop instructions pain management, weightbearing as tolerated without any precautions with physical therapy. Regular wound check. Follow-up is advised.
[2018-05-15] MEDS: ROCEPHIN VIAL 1 GRAM IVP SCH (11:29)
--- NOTE | 2018-05-15 11:47 | RAD ---
History: Acute onset of wheezing after surgery Study: AP chest Comparison: Yesterday Findings: The heart size is normal status post old sternotomy. There is mild chronic interstitial mony g disease. There is no focal lung consolidation or atelectasis or effusion. Impression: No acute cardiopulmonary disease demonstrated Reported By:
--- NOTE | 2018-05-15 13:12 | PCM.PROG ---
Progress Note - Progress Note for Day of Date of Exam: 05/15/18 - Subjective Subjective: 67 WM ER ADMISSION AFTER PRESENTING WITH FALL AND ACUTE LEFT HIP FRACTURE. PT IS S/P LEFT HIP FRACUTRE REPAIR ON 05/[address] NAVA. PT HAD FEVER DURING THE NIGHT, CO LOCALIZED PAIN THIS AM TO LEFT HIP AREA. PT CONFUSED ABOUT EVENTS PRIOR TO ADMISSION. BLOOD CULTURES COLLECTED THIS AM, IV ATBX THERAPY, BP CONTROL. DISCUSSED REHAB PLACEMENT - Past Medical Family Social History Past Med/Fam/Surg Hx: No changes since H&P Allergies: Allergies clonazepam Allergy (Verified 05/12/18 17:05) - Review of Systems ROS: No change since H&P - Vital Signs and I&O's Vital Signs: Temperature 99.0 F Pulse Rate [Right] 70 Pulse Rate [Left Radial] 69 Pulse Rate 86 Respiratory Rate 18 Blood Pressure [Left Arm] 116/62 Blood Pressure [Right Arm] 135/65 Blood Pressure 179/96 O2 Sat by Pulse Oximetry 100 Intake and Output: Intake & Output 05/13/18 05/14/18 05/15/18 05/16/18 11:59 11:59 11:59 11:59 Intake Total 1582 / 1582 2430 / 2430 2030 / 2030 Output Total 0 / 0 1250 / 1250 700 / 700 Balance 1582 / 1582 1180 / 1180 1330 / 1330 - Physical Exam Oriented: Normal Eyes: Normal Ear: Normal Nose: Normal Throat: Normal Respiratory: Diminished Cardiovascular: Normal : Normal Auscultation: Bowel Sounds: Normal Tenderness: Normal Skin: Decreased Turgur, Bruising Musculoskeletal: Right, Hip, Swelling, Tender Mood Description: Calm Speech Pattern: Clear, Appropriate - Laboratory and Diagnostics Result Diagrams: 05/15/18 04:52 05/15/18 04:52 Labs: Laboratory WBC 8.5 X10^3/uL (3.6-10.0) 05/15/18 04:52 RBC 3.08 X10^6/uL (4.7-6.0) L 05/15/18 04:52 Hgb 9.4 g/dL (13.5-18.0) L 05/15/18 04:52 Hct 26.2 % (42.0-54.0) L 05/15/18 04:52 MCV 85.1 fL (80.0-100.0) 05/15/18 04:52 MCH 30.5 pg (27.0-34.0) 05/15/18 04:52 MCHC 35.8 g/dL (33.0-35.0) H 05/15/18 04:52 RDW 13.4 % (11.6-16.5) 05/15/18 04:52 Plt Count 97 X10^3/uL (150.0-450.0) L 05/15/18 04:52 MPV 10.1 fL (7.4-11.0) 05/15/18 04:52 Neut % (Auto) 65.1 % (42.0-75.0) 05/15/18 04:52 Lymph % (Auto) 19.4 % (21.0-51.0) L 05/15/18 04:52 [place] % (Auto) 10.9 % (0.0-13.0) 05/15/18 04:52 Eos % (Auto) 4.1 % (0.9-2.9) H 05/15/18 04:52 Baso % (Auto) 0.5 % (0.2-1.0) 05/15/18 04:52 Neut # (Auto) 5.5 x10^3/uL (2.2-4.8) H 05/15/18 04:52 Lymph # (Auto) 1.6 X10^3/uL (1.3-2.9) 05/15/18 04:52 [place] # (Auto) 0.9 x10^3/uL (0.3-0.8) H 05/15/18 04:52 Eos # (Auto) 0.3 x10^3/uL (0.0-0.2) H 05/15/18 04:52 Baso # (Auto) 0.0 X10^3/uL (0.0-0.1) 05/15/18 04:52 Absolute Nucleated RBC 0.0 /100WBC 05/15/18 04:52 INR Target Range - 05/13/18 21:25 INR 1.13 (0.8-1.3) 05/13/18 21:25 APTT 28.7 SECONDS (22.9-36.5) 09/16/18 21:25 PTT Comment - 05/13/18 21:25 Sodium 141 mmol/L (136-145) 05/15/18 04:52 Corrected Sodium 141 mmol/L (136-145) 05/15/18 04:52 Potassium 3.9 mmol/L (3.5-5.1) 05/15/18 04:52 Chloride 109 mmol/L (98-107) H 05/15/18 04:52 Carbon Dioxide 23.8 mmol/L (21-32) 05/15/18 04:52 BUN 12 mg/dL (7-18) 05/15/18 04:52 Creatinine 0.94 mg/dL (0.70-1.30) 05/15/18 04:52 Est GFR (MDRD) Af Amer > 60 (>60) 05/15/18 04:52 Est GFR (MDRD) Non-Af > 60 (>60) 05/15/18 04:52 Glucose 116 mg/dL (65-99) H 05/15/18 04:52 Calcium 7.8 mg/dL (8.5-10.1) L 05/15/18 04:52 Corrected Calcium 9.0 mg/dL (8.5-10.1) 05/14/18 04:45 Magnesium 1.9 mg/dL (1.7-2.9) 05/14/18 04:45 Total Bilirubin 0.40 mg/dL (0.2-1.0) 05/14/18 04:45 AST 14 Units/L (15-37) L 05/14/18 04:45 ALT 15 Units/L (12-78) 05/14/18 04:45 Alkaline Phosphatase 64 Units/L (46-116) 05/14/18 04:45 Creatine Kinase 105 Units/L (39-308) 05/13/18 21:25 CK-MB (CK-2) 1.1 ng/mL (0-4.0) 05/13/18 21:25 CK/CKMB % Calc 1.1 % (<4) 05/13/18 21:25 Troponin I < 0.02 ng/mL (0-1.5) 05/13/18 21:25 Total Protein 5.8 g/dL (6.4-8.2) L 05/14/18 04:45 Albumin 2.8 g/dL (3.4-5.0) L 05/14/18 04:45 Globulin 3.0 g/dL (2.5-4.5) 05/14/18 04:45 Albumin/Globulin Ratio 0.9 Ratio (1.1-2.1) L 05/14/18 04:45 Blood Type A POSITIVE 05/13/18 21:25 Antibody Screen Negative 05/13/18 21:25 Crossmatch See Detail 05/13/18 21:25 - Plan (1) Closed fracture of lesser trochanter of left femur Status: Acute Qualifiers: Encounter type: initial encounter Fracture alignment: displaced Qualified Code(s): S72.122A - Displaced fracture of lesser trochanter of left femur, initial encounter for closed fracture Plan: ORHTO CONSULT, S/P HIP REPLACEMENT. BP CONTROL. AM LABS, MONITOR H &H, BLOOD CULTURES, IV ROCEPHIN DAILY. ORAL HYDRATION. PAIN CONTROL, POST OP WOUND CARE, PHYSICAL THERAPY (2) Coronary artery disease Status: Chronic (3) Essential hypertension Status: Chronic (4) Dyslipidemia Status: Chronic (5) Depression Status: Chronic
[2018-05-15] MEDS: MORPHINE SULFATE PCA 30 MG IV PRN (14:09)
[2018-05-15] MEDS: BENADRYL CAP/TAB 25 MG PO PRN ×2 (14:35→20:32)
[2018-05-15] MEDS: MILK OF MAGNESIA PO SCH (20:31)
[2018-05-15] MEDS: COLACE CAP 100 MG PO SCH (20:32)
[2018-05-15] MEDS: LIPITOR TAB 40 MG PO SCH (20:32)
[2018-05-16] MEDS: NS 1000 ML 1,000 ML IV SCH ×4 (01:29→21:20)
[2018-05-16 06:11] LABS: BASOPHILS % (AUTO) 0.7 % (0.2-1.0); BLOOD UREA NITROGEN 10 mg/dL (7-18); CALCIUM 7.5 mg/dL (8.5-10.1); CARBON DIOXIDE 26.2 mmol/L (21-32); CHLORIDE 112 mmol/L (98-107); COR NA(FOR HYPERGLY) 145 mmol/L (136-145); CREATININE 0.84 mg/dL (0.70-1.30); EOSINOPHILS # (AUTO) 0.3 x10^3/uL (0.0-0.2); EOSINOPHILS % (AUTO) 4.9 % (0.9-2.9); HEMATOCRIT 21.2 % (42.0-54.0); HEMOGLOBIN 7.6 g/dL (13.5-18.0); LYMPHOCYTES # (AUTO) 1.1 X10^3/uL (1.3-2.9); LYMPHOCYTES % (AUTO) 21.6 % (21.0-51.0); MEAN CORPUSCULAR HEMOGLOBIN 30.6 pg (27.0-34.0); MEAN CORPUSCULAR HGB CONC 35.8 g/dL (33.0-35.0); MEAN CORPUSCULAR VOLUME 85.5 fL (80.0-100.0); MEAN PLATELET VOLUME 9.8 fL (7.4-11.0); MONOCYTES # (AUTO) 0.6 x10^3/uL (0.3-0.8); MONOCYTES % (AUTO) 11.8 % (0.0-13.0); NEUTROPHILS # (AUTO) 3.2 x10^3/uL (2.2-4.8); PLATELET COUNT 82 X10^3/uL (150.0-450.0); RED BLOOD COUNT 2.48 X10^6/uL (4.7-6.0); RED CELL DISTRIBUTION WIDTH 13.3 % (11.6-16.5); SODIUM 144 mmol/L (136-145); WHITE BLOOD COUNT 5.2 X10^3/uL (3.6-10.0); eGFR NON BLACK RACES > 60 (>60)
[2018-05-16 06:48] LABS: HYPOCHROMASIA SLIGHT; PLATELET MORPHOLOGY COMMENT NORMAL (NORMAL)
[2018-05-16] MEDS ORDERED: NS 100 ML IV + SPIKE MINIBAG* 0 ML IV ONE (08:01)
[2018-05-16] MEDS: TOPROL XL PO SCH (08:26)
[2018-05-16] MEDS: MILK OF MAGNESIA PO SCH ×2 (08:26→21:34)
[2018-05-16] MEDS: NORVASC TAB 10 MG PO SCH (08:27)
[2018-05-16] MEDS: LOVENOX INJ 30 MG SYR SC SCH ×2 (08:27→21:29)
[2018-05-16] MEDS: LYRICA CAP 75 MG PO SCH ×2 (08:27→21:22)
[2018-05-16] MEDS: TYLENOL 325 MG TAB PO PRN ×2 (08:27→23:51)
[2018-05-16] MEDS: PROzac PO SCH (08:27)
[2018-05-16] MEDS: NEURONTIN CAP 100 MG PO SCH ×2 (08:27→21:22)
[2018-05-16] MEDS: ROCEPHIN VIAL 1 GRAM IVP SCH (08:41)
[2018-05-16] MEDS ORDERED: LASIX IVP ONE ×2 (09:19→17:51)
[2018-05-16] MEDS ORDERED: NS 500 ML IV 500 ML IV ONE (09:19)
[2018-05-16] MEDS: MORPHINE SULFATE PCA 30 MG IV PRN (14:11)
[2018-05-16 17:01] LABS: BILIRUBIN,URINE NEGATIVE (NEGATIVE); BLOOD/HEMOGLOBIN,URINE 1+ (NEGATIVE); GLUCOSE, URINE NEGATIVE (NEGATIVE); KETONES,URINE NEGATIVE (NEGATIVE); LEUKOCYTE ESTERASE ,URINE NEGATIVE (NEGATIVE); NITRITES,URINE NEGATIVE (NEGATIVE); PH,URINE 6.5 (5.0 - 8.0); PROTEIN,URINE 1+ (NEGATIVE); UROBILINOGEN,URINE NORMAL (NORMAL)
[2018-05-16 17:04] LABS: APPEARANCE,URINE CLEAR (CLEAR); COLOR,URINE YELLOW (YELLOW)
[2018-05-16 17:07] LABS: BACTERIA,URINE NEGATIVE /HPF (NEGATIVE); RBC,URINE 0-2 /HPF (NONE SEEN); SQUAMOUS EPITHELIAL CELL,UR RARE /HPF (NEGATIVE)
--- NOTE | 2018-05-16 17:17 | PCM.PROG ---
Progress Note - Progress Note for Day of Date of Exam: 05/16/18 - Subjective Subjective: 67 WM ER ADMISSION AFTER PRESENTING WITH FALL AND ACUTE LEFT HIP FRACTURE. PT IS S/P LEFT HIP FRACUTRE REPAIR ON 05/[address] NAVA. PT HAD FEVER DURING THE NIGHT, CO LOCALIZED PAIN THIS AM TO LEFT HIP AREA. PT CONFUSED ABOUT EVENTS PRIOR TO ADMISSION. PT FEBRILE DURING THIS NIGHT, CXR W/O ACUTE FINDINGS. PT ANEMIC THIS AM, HGB 7.6, PLAN TO TRANSFUSE 1 UNIT PRBC, POST INFUSION LASIX AND AM CXR, RESP CONSULT FROM CHRONIC RESP DISEASE - Past Medical Family Social History Past Med/Fam/Surg Hx: No changes since H&P Allergies: Allergies clonazepam Allergy (Verified 05/12/18 17:05) - Review of Systems ROS: No change since H&P - Vital Signs and I&O's Vital Signs: Temperature 99.4 F Pulse Rate [Right] 74 Pulse Rate [Left Radial] 73 Pulse Rate 74 Respiratory Rate 20 Blood Pressure [Left Arm] 141/98 Blood Pressure [Right Arm] 135/65 Blood Pressure 179/96 O2 Sat by Pulse Oximetry 93 Intake and Output: Intake & Output 05/14/18 05/15/18 05/16/18 05/17/18 11:59 11:59 11:59 11:59 Intake Total 2430 / 2430 2030 / 2030 2870 / 2870 680 / 680 Output Total 1250 / 1250 700 / 700 500 / 500 1150 / 1150 Balance 1180 / 1180 1330 / 1330 2370 / 2370 -470 / -470 - Physical Exam Oriented: Normal Eyes: Normal Ear: Normal Nose: Normal Throat: Normal Respiratory: Diminished Cardiovascular: Normal : Normal Auscultation: Bowel Sounds: Normal Tenderness: Normal Skin: Decreased Turgur, Bruising Musculoskeletal: Right, Hip, Swelling, Tender Mood Description: Calm Speech Pattern: Clear, Inappropriate - Laboratory and Diagnostics Result Diagrams: 05/16/18 05:13 05/16/18 05:13 Labs: Laboratory WBC 5.2 X10^3/uL (3.6-10.0) 05/16/18 05:13 RBC 2.48 X10^6/uL (4.7-6.0) L 05/16/18 05:13 Hgb 7.6 g/dL (13.5-18.0) L 05/16/18 05:13 Hct 21.2 % (42.0-54.0) L 05/16/18 05:13 MCV 85.5 fL (80.0-100.0) 05/16/18 05:13 MCH 30.6 pg (27.0-34.0) 05/16/18 05:13 MCHC 35.8 g/dL (33.0-35.0) H 05/16/18 05:13 RDW 13.3 % (11.6-16.5) 05/16/18 05:13 Plt Count 82 X10^3/uL (150.0-450.0) L 05/16/18 05:13 Plt Count Comment Decreased (ADEQUATE) 05/16/18 05:13 MPV 9.8 fL (7.4-11.0) 05/16/18 05:13 Neut % (Auto) 61.0 % (42.0-75.0) 05/16/18 05:13 Lymph % (Auto) 21.6 % (21.0-51.0) 05/16/18 05:13 [place] % (Auto) 11.8 % (0.0-13.0) 05/16/18 05:13 Eos % (Auto) 4.9 % (0.9-2.9) H 05/16/18 05:13 Baso % (Auto) 0.7 % (0.2-1.0) 05/16/18 05:13 Neut # (Auto) 3.2 x10^3/uL (2.2-4.8) 05/16/18 05:13 Lymph # (Auto) 1.1 X10^3/uL (1.3-2.9) L 05/16/18 05:13 [place] # (Auto) 0.6 x10^3/uL (0.3-0.8) 05/16/18 05:13 Eos # (Auto) 0.3 x10^3/uL (0.0-0.2) H 05/16/18 05:13 Baso # (Auto) 0.0 X10^3/uL (0.0-0.1) 05/16/18 05:13 Absolute Nucleated RBC 0.0 /100WBC 05/16/18 05:13 Plt Morphology Comment Normal (NORMAL) 05/16/18 05:13 RBC Morphology Abnormal (NORMAL) 05/16/18 05:13 Hypochromasia Slight A 05/16/18 05:13 INR Target Range - 05/13/18 21:25 INR 1.13 (0.8-1.3) 05/13/18 21:25 APTT 28.7 SECONDS (22.9-36.5) 05/13/18 21:25 PTT Comment - 05/13/18 21:25 Sodium 144 mmol/L (136-145) 05/16/18 05:13 Corrected Sodium 145 mmol/L (136-145) 05/16/18 05:13 Potassium 4.2 mmol/L (3.5-5.1) 05/16/18 05:13 Chloride 112 mmol/L (98-107) H 05/16/18 05:13 Carbon Dioxide 26.2 mmol/L (21-32) 05/16/18 05:13 BUN 10 mg/dL (7-18) 05/16/18 05:13 Creatinine 0.84 mg/dL (0.70-1.30) 05/16/18 05:13 Est GFR (MDRD) Af Amer > 60 (>60) 05/16/18 05:13 Est GFR (MDRD) Non-Af > 60 (>60) 05/16/18 05:13 Glucose 137 mg/dL (65-99) H 05/16/18 05:13 Calcium 7.5 mg/dL (8.5-10.1) L 05/16/18 05:13 Corrected Calcium 9.0 mg/dL (8.5-10.1) 05/14/18 04:45 Magnesium 1.9 mg/dL (1.7-2.9) 05/14/18 04:45 Iron 13 ug/dL (50-175) L 05/16/18 05:13 Transferrin 156 mg/dL (202-364) L 05/16/18 05:13 Ferritin 151 ng/mL (26-388) 05/16/18 05:13 Total Bilirubin 0.40 mg/dL (0.2-1.0) 05/14/18 04:45 AST 14 Units/L (15-37) L 05/14/18 04:45 ALT 15 Units/L (12-78) 05/14/18 04:45 Alkaline Phosphatase 64 Units/L (46-116) 05/14/18 04:45 Creatine Kinase 105 Units/L (39-308) 05/13/18 21:25 CK-MB (CK-2) 1.1 ng/mL (0-4.0) 05/13/18 21:25 CK/CKMB % Calc 1.1 % (<4) 05/13/18 21:25 Troponin I < 0.02 ng/mL (0-1.5) 05/13/18 21:25 Total Protein 5.8 g/dL (6.4-8.2) L 05/14/18 04:45 Albumin 2.8 g/dL (3.4-5.0) L 05/14/18 04:45 Globulin 3.0 g/dL (2.5-4.5) 05/14/18 04:45 Albumin/Globulin Ratio 0.9 Ratio (1.1-2.1) L 05/14/18 04:45 Vitamin B12 273 pg/mL (193-986) 05/16/18 05:13 Folate 17.8 ng/mL (>8.6) 05/16/18 05:13 Specimen Type Clean catch urine 05/16/18 16:50 Urine Color Yellow (YELLOW) 05/16/18 16:50 Urine Appearance Clear (CLEAR) 05/16/18 16:50 Urine pH 6.5 (5.0 - 8.0) 05/16/18 16:50 Ur Specific [place] 1.010 (1.000-1.030) 05/16/18 16:50 Urine Protein 1+ (NEGATIVE) 05/16/18 16:50 Urine Glucose (UA) Negative (NEGATIVE) 05/16/18 16:50 Urine Ketones Negative (NEGATIVE) 05/16/18 16:50 Urine Occult Blood 1+ (NEGATIVE) 05/16/18 16:50 Urine Nitrite Negative (NEGATIVE) 05/16/18 16:50 Urine Bilirubin Negative (NEGATIVE) 05/16/18 16:50 Urine Urobilinogen Normal (NORMAL) 05/16/18 16:50 Ur Leukocyte Esterase Negative (NEGATIVE) 05/16/18 16:50 Urine RBC 0-2 /HPF (NONE SEEN) 05/16/18 16:50 Urine WBC 0-2 /HPF (NONE SEEN) 05/16/18 16:50 Ur Squamous Epith Cells Rare /HPF (NEGATIVE) 05/16/18 16:50 Urine Bacteria Negative /HPF (NEGATIVE) 05/16/18 16:50 Ur Culture Indicated? No/not indicated 05/16/18 16:50 Stool Description 10g,formed,brown 05/16/18 16:50 Stl Occult Blood (IFOB) Negative (NEGATIVE) 05/16/18 16:50 Blood Type A POSITIVE 05/13/18 21:25 Antibody Screen Negative 05/13/18 21:25 Crossmatch See Detail 05/13/18 21:25 - Plan (1) Closed fracture of lesser trochanter of left femur Status: Acute Qualifiers: Encounter type: initial encounter Fracture alignment: displaced Qualified Code(s): S72.122A - Displaced fracture of lesser trochanter of left femur, initial encounter for closed fracture Plan: ORHTO CONSULT, S/P HIP REPLACEMENT. BP CONTROL. AM LABS, MONITOR H &H. ORAL HYDRATION. PAIN CONTROL, POST OP WOUND CARE, PHYSICAL THERAPY (2) Coronary artery disease Status: Chronic (3) Essential hypertension Status: Chronic (4) Dyslipidemia Status: Chronic (5) Depression Status: Chronic (6) Fever Status: Acute Plan: BLOOD CULTURES COLLECTED ON 05/15. IV ROCEPHIN, RESP CONSULT FOR COPD (7) Anemia Status: Acute Plan: OCCULT STOOL, TRANSFUSE PRBC
[2018-05-16] MEDS: LIPITOR TAB 40 MG PO SCH (21:22)
[2018-05-16] MEDS: COLACE CAP 100 MG PO SCH (21:34)
[2018-05-17] MEDS: NS 1000 ML 1,000 ML IV SCH ×2 (02:14→09:40)
[2018-05-17 06:22] LABS: BASOPHILS # (AUTO) 0.1 X10^3/uL (0.0-0.1); BASOPHILS % (AUTO) 0.8 % (0.2-1.0); EOSINOPHILS # (AUTO) 0.4 x10^3/uL (0.0-0.2); EOSINOPHILS % (AUTO) 4.9 % (0.9-2.9); HEMATOCRIT 25.3 % (42.0-54.0); HEMOGLOBIN 9.2 g/dL (13.5-18.0); LYMPHOCYTES # (AUTO) 1.7 X10^3/uL (1.3-2.9); LYMPHOCYTES % (AUTO) 22.9 % (21.0-51.0); MEAN CORPUSCULAR HEMOGLOBIN 30.2 pg (27.0-34.0); MEAN CORPUSCULAR HGB CONC 36.3 g/dL (33.0-35.0); MEAN CORPUSCULAR VOLUME 83.3 fL (80.0-100.0); MEAN PLATELET VOLUME 9.7 fL (7.4-11.0); MONOCYTES # (AUTO) 0.9 x10^3/uL (0.3-0.8); MONOCYTES % (AUTO) 11.8 % (0.0-13.0); NEUTROPHILS # (AUTO) 4.3 x10^3/uL (2.2-4.8); NEUTROPHILS % (AUTO) 59.6 % (42.0-75.0); PLATELET COUNT 121 X10^3/uL (150.0-450.0); RED BLOOD COUNT 3.04 X10^6/uL (4.7-6.0); RED CELL DISTRIBUTION WIDTH 13.7 % (11.6-16.5); WHITE BLOOD COUNT 7.3 X10^3/uL (3.6-10.0)
[2018-05-17 06:31] LABS: BLOOD UREA NITROGEN 9 mg/dL (7-18); CARBON DIOXIDE 29.8 mmol/L (21-32); CHLORIDE 106 mmol/L (98-107); COR NA(FOR HYPERGLY) 144 mmol/L (136-145); CREATININE 0.84 mg/dL (0.70-1.30); SODIUM 143 mmol/L (136-145); eGFR NON BLACK RACES > 60 (>60)
[2018-05-17] MEDS: LOVENOX INJ 30 MG SYR SC SCH (08:09)
[2018-05-17] MEDS: TOPROL XL PO SCH (08:10)
[2018-05-17] MEDS: MILK OF MAGNESIA PO SCH (08:10)
[2018-05-17] MEDS: NORVASC TAB 10 MG PO SCH (08:10)
[2018-05-17] MEDS: LYRICA CAP 75 MG PO SCH (08:10)
[2018-05-17] MEDS: PROzac PO SCH (08:10)
[2018-05-17] MEDS: NEURONTIN CAP 100 MG PO SCH (08:10)
[2018-05-17] MEDS: ROCEPHIN VIAL 1 GRAM IVP SCH (08:10)
[2018-05-17] MEDS: MORPHINE SULFATE PCA 30 MG IV PRN (08:53)
--- NOTE | 2018-05-17 09:30 | RAD ---
History: Fever Study: Portable upright AP chest Comparison: May 15 Findings: The heart size is normal status post old coronary artery bypass grafting surgery. There are chronic interstitial lung markings as before. There is no focal lung consolidation or atelectasis an d no effusion is suggested. There are old fractures of left upper lateral and posterior ribs. Impression: No acute disease demonstrated Reported By:
[2018-05-17] MEDS ORDERED: LEVAQUIN PREMIX IV 500 MG 500 MG/100 ML BAG IV SCH (10:00)
[2018-05-17 12:50] VITALS: BP 133/65
--- NOTE | 2018-06-03 14:57 | PCM.DCPLAN ---
Discharge Summary - Admission Date Date of Admission: 05/12/18 - Discharge Date Discharge Date: 05/17/18 - Admission Diagnoses (1) Closed fracture of lesser trochanter of left femur Status: Acute (2) Coronary artery disease Status: Chronic (3) Dyslipidemia Status: Chronic (4) Essential hypertension Status: Chronic (5) Anemia Status: Acute - Discharge Diagnoses Discharge Diagnosis: same as admission diagnosis - Discharge Medications Discharge Medications: Home Medication List amlodipine 1 tab PO DAILY 05/13/18 [History] pregabalin [Lyrica] 1 cap PO BID 05/13/18 [History] tizanidine 1 tab PO BID PRN 05/13/18 [History] cephalexin [Keflex] 500 mg PO Q8H #30 cap 05/15/18 [Rx] fluoxetine [Prozac] 20 mg PO QDAY #30 cap 05/17/18 [Rx] gabapentin [Neurontin] 100 mg PO QDAY #30 cap 05/17/18 [Rx] levofloxacin [Levaquin] 500 mg PO QDAY #7 tab 05/17/18 [Rx] metoprolol succinate [Toprol XL] 50 mg PO QDAY #30 tab 05/17/18 [Rx] oxycodone-acetaminophen [Percocet] 1 tab PO Q4-6H PRN #30 tab 05/17/18 [Rx] Prescriptions: cephalexin [Keflex] BRANDYMITZI BUSHRA fluoxetine [Prozac] AVERY,ROE gabapentin [Neurontin] AVERY,ROE levofloxacin [Levaquin] AVERY,ROE metoprolol succinate [Toprol XL] AVERY,ROE oxycodone-acetaminophen [Percocet] MENEDAL,MITZI TOMLINSON - Hospital Course Vital Signs: Temperature 99.7 F Pulse Rate [Right] 73 Pulse Rate [Left Radial] 70 Pulse Rate 74 Respiratory Rate 20 Blood Pressure [Left Arm] 133/65 Blood Pressure [Right Arm] 135/65 Blood Pressure 179/96 O2 Sat by Pulse Oximetry 93 Latest Lab Results: Laboratory Last Values WBC 7.3 X10^3/uL (3.6-10.0) 05/17/18 05:15 RBC 3.04 X10^6/uL (4.7-6.0) L 05/17/18 05:15 Hgb 9.2 g/dL (13.5-18.0) L 05/17/18 05:15 Hct 25.3 % (42.0-54.0) L 05/17/18 05:15 MCV 83.3 fL (80.0-100.0) 05/17/18 05:15 MCH 30.2 pg (27.0-34.0) 05/17/18 05:15 MCHC 36.3 g/dL (33.0-35.0) H 05/17/18 05:15 RDW 13.7 % (11.6-16.5) 05/17/18 05:15 Plt Count 121 X10^3/uL (150.0-450.0) L 05/17/18 05:15 Plt Count Comment Decreased (ADEQUATE) 05/16/18 05:13 MPV 9.7 fL (7.4-11.0) 05/17/18 05:15 Neut % (Auto) 59.6 % (42.0-75.0) 05/17/18 05:15 Lymph % (Auto) 22.9 % (21.0-51.0) 05/17/18 05:15 [place] % (Auto) 11.8 % (0.0-13.0) 05/17/18 05:15 Eos % (Auto) 4.9 % (0.9-2.9) H 05/17/18 05:15 Baso % (Auto) 0.8 % (0.2-1.0) 05/17/18 05:15 Neut # (Auto) 4.3 x10^3/uL (2.2-4.8) 05/17/18 05:15 Lymph # (Auto) 1.7 X10^3/uL (1.3-2.9) 05/17/18 05:15 [place] # (Auto) 0.9 x10^3/uL (0.3-0.8) H 05/17/18 05:15 Eos # (Auto) 0.4 x10^3/uL (0.0-0.2) H 05/17/18 05:15 Baso # (Auto) 0.1 X10^3/uL (0.0-0.1) 05/17/18 05:15 Absolute Nucleated RBC 0.1 /100WBC 05/17/18 05:15 Plt Morphology Comment Normal (NORMAL) 05/16/18 05:13 RBC Morphology Abnormal (NORMAL) 05/16/18 05:13 Hypochromasia Slight A 05/16/18 05:13 INR Target Range - 05/13/18 21:25 INR 1.13 (0.8-1.3) 05/13/18 21:25 APTT 28.7 SECONDS (22.9-36.5) 05/13/18 21:25 PTT Comment - 05/13/18 21:25 Sodium 143 mmol/L (136-145) 05/17/18 05:15 Corrected Sodium 144 mmol/L (136-145) 05/17/18 05:15 Potassium 3.7 mmol/L (3.5-5.1) 05/17/18 05:15 Chloride 106 mmol/L (98-107) 05/17/18 05:15 Carbon Dioxide 29.8 mmol/L (21-32) 05/17/18 05:15 BUN 9 mg/dL (7-18) 05/17/18 05:15 Creatinine 0.84 mg/dL (0.70-1.30) 05/17/18 05:15 Est GFR (MDRD) Af Amer > 60 (>60) 05/17/18 05:15 Est GFR (MDRD) Non-Af > 60 (>60) 05/17/18 05:15 Glucose 124 mg/dL (65-99) H 05/17/18 05:15 Calcium 8.0 mg/dL (8.5-10.1) L 05/17/18 05:15 Corrected Calcium 9.0 mg/dL (8.5-10.1) 05/14/18 04:45 Magnesium 1.9 mg/dL (1.7-2.9) 05/14/18 04:45 Iron 13 ug/dL (50-175) L 05/16/18 05:13 Transferrin 156 mg/dL (202-364) L 05/16/18 05:13 Ferritin 151 ng/mL (26-388) 05/16/18 05:13 Total Bilirubin 0.40 mg/dL (0.2-1.0) 05/14/18 04:45 AST 14 Units/L (15-37) L 05/14/18 04:45 ALT 15 Units/L (12-78) 05/14/18 04:45 Alkaline Phosphatase 64 Units/L (46-116) 05/14/18 04:45 Creatine Kinase 105 Units/L (39-308) 05/13/18 21:25 CK-MB (CK-2) 1.1 ng/mL (0-4.0) 05/13/18 21:25 CK/CKMB % Calc 1.1 % (<4) 05/13/18 21:25 Troponin I < 0.02 ng/mL (0-1.5) 05/13/18 21:25 Total Protein 5.8 g/dL (6.4-8.2) L 05/14/18 04:45 Albumin 2.8 g/dL (3.4-5.0) L 05/14/18 04:45 Globulin 3.0 g/dL (2.5-4.5) 05/14/18 04:45 Albumin/Globulin Ratio 0.9 Ratio (1.1-2.1) L 05/14/18 04:45 Vitamin B12 273 pg/mL (193-986) 05/16/18 05:13 Folate 17.8 ng/mL (>8.6) 05/16/18 05:13 Specimen Type Clean catch urine 05/16/18 16:50 Urine Color Yellow (YELLOW) 05/16/18 16:50 Urine Appearance Clear (CLEAR) 05/16/18 16:50 Urine pH 6.5 (5.0 - 8.0) 05/16/18 16:50 Ur Specific [place] 1.010 (1.000-1.030) 05/16/18 16:50 Urine Protein 1+ (NEGATIVE) 05/16/18 16:50 Urine Glucose (UA) Negative (NEGATIVE) 05/16/18 16:50 Urine Ketones Negative (NEGATIVE) 05/16/18 16:50 Urine Occult Blood 1+ (NEGATIVE) 05/16/18 16:50 Urine Nitrite Negative (NEGATIVE) 05/16/18 16:50 Urine Bilirubin Negative (NEGATIVE) 05/16/18 16:50 Urine Urobilinogen Normal (NORMAL) 05/16/18 16:50 Ur Leukocyte Esterase Negative (NEGATIVE) 05/16/18 16:50 Urine RBC 0-2 /HPF (NONE SEEN) 05/16/18 16:50 Urine WBC 0-2 /HPF (NONE SEEN) 05/16/18 16:50 Ur Squamous Epith Cells Rare /HPF (NEGATIVE) 05/16/18 16:50 Urine Bacteria Negative /HPF (NEGATIVE) 05/16/18 16:50 Ur Culture Indicated? No/not indicated 05/16/18 16:50 Stool Description 10g,formed,brown 05/16/18 16:50 Stl Occult Blood (IFOB) Negative (NEGATIVE) 05/16/18 16:50 Blood Type A POSITIVE 05/13/18 21:25 Antibody Screen Negative 05/13/18 21:25 Crossmatch See Detail 05/13/18 21:25 Hospital Course: 67 WM ER ADMISSION AFTER PRESENTING WITH FALL AND ACUTE LEFT HIP FRACTURE. PT IS S/P LEFT HIP FRACTURE REPAIR ON 05/[address] NAVA. PT HAD FEVER DURING THE NIGHT, CO LOCALIZED PAIN THIS AM TO LEFT HIP AREA. PT CONFUSED ABOUT EVENTS PRIOR TO ADMISSION. PT FEBRILE DURING THIS NIGHT, CXR W/O ACUTE FINDINGS. PT ANEMIC THIS AM, HGB 7.6, PLAN TO TRANSFUSE 1 UNIT PRBC, POST INFUSION LASIX AND AM CXR, RESP CONSULT FROM CHRONIC RESP DISEASE. PATIENT SYMPTOMS IMPROVED AND HE WAS DISCHARGED TO [facility] FOR IP REHAB. - Discharge Plan Disposition: XFER SNF Condition: Stable Prescriptions: cephalexin [Keflex] 500 mg PO Q8H #30 cap fluoxetine [Prozac] 20 mg PO QDAY #30 cap gabapentin [Neurontin] 100 mg PO QDAY #30 cap levofloxacin [Levaquin] 500 mg PO QDAY #7 tab metoprolol succinate [Toprol XL] 50 mg PO QDAY #30 tab oxycodone-acetaminophen [Percocet] 1 tab PO Q4-6H PRN #30 tab PRN Reason: - Follow ups/Referrals Follow ups/Referrals: [facility] [Other] ([facility] DISCHARG[facility] TO [facility]) MITZI NAVA [STAFF PHYSICIAN] - 06/05/18 11:00 am ([place] office) TIFFANIE ADDISON [Primary Care Provider] - - Instructions Additional Instructions: TEDS HOSE FOR 6 WEEKS. LOVENOX 30MG EVERY 12 HOURS FOR 21 DAYS. MAY DISCHARGE WHEN OK WITH DR. ADDISON. FULL WEIGHT BEARING, NO RESTRICTIONS. Forms: Patient Portal
== END 2018-05-17 14:06 | DRG 482 ==
LOC: ER 16:58 → MED/SURG 21:21
PROVIDERS: ADMIT Obstetrics & Gynecology Obstetrics; ATTEND Internal Medicine
DX: E78.2 Mixed hyperlipidemia; D64.89 Other specified anemias; W18.39XA Other fall on same level, initial encounter; R50.9 Fever, unspecified; F32.89 Other specified depressive episodes; Y92.091 Bathroom in other non-institutional residence as the place of occurrence of the external cause; I10 Essential (primary) hypertension; R26.89 Other abnormalities of gait and mobility; S72.122A Displaced fracture of lesser trochanter of left femur, initial encounter for closed fracture; I25.10 Atherosclerotic heart disease of native coronary artery without angina pectoris; R55 Syncope and collapse
CPT/HCPCS: 36415; 36430; 71010; 71045; 73501; 73552; 73700; 76000; 80048; 80053; 81001; 82270; 82550; 82553; 82607; 82728; 82746; 83540; 83735; 84466; 84484; 85025; 85610; 85730; 86850; 86900; 86901; 86922; 87040; 93005; 93010; 94762; 96365; 96367; 96374; 96375; 97110; 97116; 97163; 97167; 97530; 97535; 99283; 99284; A4222; P9016; J0330; J0690; J0696; J1170; J1650; J1885; J1940; J1956; J2250; J2270; J2271; J2405; J2704; J3010; J3475; J3480; J3490; J7030; J7040; J7050

== ENCOUNTER 2022-07-27 15:41 | Observation (INO) ==
--- NOTE | 2022-07-27 16:40 | EKG ---
Test Reason : HYPOSTENSIVE, CAD Blood Pressure : */* mmHG Vent. Rate : 46 BPM Atrial Rate : 46 BPM P-R Int : 222 ms QRS Dur : 76 ms QT Int : 490 ms P-R-T Axes : * 27 100 degrees QTc Int : 428 ms Sinus bradycardia with sinus arrhythmia with 1st degree AV block Cannot rule out Anterior infarct , age undetermined T wave abnormality, consider lateral ischemia Abnormal ECG Referred By: Confirmed By:
[2022-07-27 16:47] LABS: BASOPHILS # (AUTO) 0.1 X10^3/uL (0.0-0.1); EOSINOPHILS # (AUTO) 0.1 x10^3/uL (0.0-0.2); EOSINOPHILS % (AUTO) 2.4 % (0.9-2.9); HEMATOCRIT 36.5 % (42.0-54.0); HEMOGLOBIN 12.4 g/dL (13.5-18.0); LYMPHOCYTES # (AUTO) 1.2 X10^3/uL (1.3-2.9); LYMPHOCYTES % (AUTO) 20.4 % (21.0-51.0); MEAN CORPUSCULAR HEMOGLOBIN 29.3 pg (27.0-34.0); MEAN CORPUSCULAR HGB CONC 33.9 g/dL (33.0-35.0); MEAN CORPUSCULAR VOLUME 86.5 fL (80.0-100.0); MEAN PLATELET VOLUME 8.4 fL (7.4-11.0); MONOCYTES # (AUTO) 0.5 x10^3/uL (0.3-0.8); MONOCYTES % (AUTO) 8.2 % (0.0-13.0); NEUTROPHILS # (AUTO) 4.1 x10^3/uL (2.2-4.8); RED BLOOD COUNT 4.22 X10^6/uL (4.7-6.0); RED CELL DISTRIBUTION WIDTH 13.9 % (11.6-16.5)
[2022-07-27 17:01] LABS: LACTIC ACID 1.2 mmol/L (0.4-2.0)
[2022-07-27 17:04] VITALS: BMI 22.7
[2022-07-27 17:06] LABS: ALANINE AMINOTRANSFERASE 9 Units/L (12-78); ALBUMIN 2.8 g/dL (3.4-5.0); ALKALINE PHOSPHATASE 64 Units/L (46-116); ASPARTATE AMINO TRANSFERASE 13 Units/L (15-37); BLOOD UREA NITROGEN 15 mg/dL (7-18); CALCIUM 7.7 mg/dL (8.5-10.1); CARBON DIOXIDE 25.1 mmol/L (21-32); CHLORIDE 109 mmol/L (98-107); COR CA(FOR HYPOALB) 8.7 mg/dL (8.5-10.1); CREATINE KINASE 39 Units/L (39-308); CREATININE 1.08 mg/dL (0.70-1.30); MAGNESIUM 1.8 mg/dL (2.0-2.9); SODIUM 142 mmol/L (136-145); TOTAL PROTEIN 5.8 g/dL (6.4-8.2); eGFR NON BLACK RACES > 60 (>60)
[2022-07-27 17:44] LABS: IRON 83 ug/dL (50-175)
[2022-07-27] MEDS: NS 1,000 ML IV 1,000 ML IV SCH (17:48)
--- NOTE | 2022-07-27 18:26 | DR.H&P ---
H&P - History & Physical for Day of: H&P Date: 07/27/22 - Chief Complaint Chief Complaint: LOW BLOOD PRESSURE - History of Present Illness History of Present Illness: PT IS 71 WM, DIRECT ADMIT FOR EVALUATION OF WEAKNESS AND HYPOTENSION. PT REPORTS HIS BLOOD PRESSURE HAS BEEN RUNNING HIGH AT HOME. IN OFFICE BILATERAL MANUAL BP70-48, WITH CO HURTING BETWEEN HIS SHOULDER BLADES. PT HAS PMH OF CAD, PAD, COPD,BPH,HTN, OA, GERD. PT REPORTS LAST STRESS TEST WAS IN 2020 AT [facility]. - Past Medical History Past Medical History: Coronary Artery Disease, Hypertension, Dyslipidemia, Depression, Hypothyroidism, Anemia - Past Surgical History Surgical History: CABG/Valve Surgery, Cholecystectomy, Ortho Surgery - Family History Family Medical History: Cancer, Heart Failure - Social History Does patient currently use any type of tobacco product: No Have you used tobacco products in the last 12 months: No Alcohol Use: None Drug Use: None - Medications Home Medications: clonazepam Allergy (Verified 05/12/18 17:05) pregabalin [From Lyrica] Allergy (Verified 03/22/19 14:06) - Review of Systems Constitutional: Weakness Eyes: No Symptoms Reported ENT: No Symptoms Reported Respiratory: denies: Shortness of Breath Cardiovascular: Light Headedness Gastrointestinal: Nausea, Vomiting Genitourinary: No Symptoms Reported Musculoskeletal: Shoulder Pain, Back Pain, Leg Pain Skin: No Symptoms Reported Neurological: Weakness - Physical Exam Vital Signs: Pulse Rate 50 Respiratory Rate 17 Blood Pressure [Left Arm] 143/86 Blood Pressure [Right Arm] 135/65 Blood Pressure 108/58 O2 Sat by Pulse Oximetry 98 Oriented: Normal Eyes: Normal Ear: Normal Nose: Normal Throat: Normal Respiratory: RLL Diminished, LLL Diminished Cardiovascular: Bradycardia. negative: Edema : Normal Auscultation: Bowel Sounds: Normal Palpation: Normal Tenderness: Normal Skin: Decreased Turgur Musculoskeletal: Right, Hip, Back:Thoracic, Back:Lumbar, Motor Deficit Psychiatric: Normal Affect: Depressed Speech Pattern: Clear, Appropriate - Assessment/Plan (1) Hypotension Status: Acute Plan: ADMIT, ICU CARDIAC AND BP MONITORING. FLUID REPLACEMENT, STRICT I&OS. EKG AND CARDIAC ENZYMES. UA, UC. VERIFY HOME MEDICATION, HOLD ANTIHYPERTENSIVES. PRN SUPPLEMENTAL O2 (2) Acute renal injury Status: Acute (3) CHF (congestive heart failure) Status: Acute (4) COPD (chronic obstructive pulmonary disease) Status: Acute (5) Depression Status: Acute (6) Coronary artery disease Status: Chronic - Allergies Allergies/Adverse Reactions: Allergies Allergy/AdvReac Type Severity Reaction Status Date / Time clonazepam Allergy Verified 05/12/18 17:05 pregabalin [From Lyrica] Allergy Verified 03/22/19 14:06
[2022-07-27] MEDS: LIPITOR TAB 40 MG PO SCH (20:37)
[2022-07-27] MEDS: PLAVIX PO SCH (20:37)
[2022-07-27] MEDS: EFFEXOR XR 37.5 MG CAP 24-HR PO SCH (20:37)
[2022-07-27] MEDS: PriLOSEC PO SCH (20:37)
[2022-07-27] MEDS: SYNTHROID 25 mcg TAB PO SCH (20:37)
[2022-07-27] MEDS: NORCO 5/325 MG TAB PO PRN (20:38)
--- NOTE | 2022-07-27 21:41 | EKG ---
Test Reason : HYPOSTENSIVE, CAD Blood Pressure : */* mmHG Vent. Rate : 50 BPM Atrial Rate : 50 BPM P-R Int : 210 ms QRS Dur : 82 ms QT Int : 494 ms P-R-T Axes : * 40 115 degrees QTc Int : 450 ms Sinus bradycardia with 1st degree AV block Abnormal QRS-T angle, consider primary T wave abnormality Abnormal ECG When compared with ECG of 27-JUL-2022 16:29, (Unconfirmed) No significant change was found Referred By: Confirmed By:
[2022-07-28] MEDS: NS 1,000 ML IV 1,000 ML IV SCH (00:40)
[2022-07-28] MEDS ORDERED: CATAPRES TAB 0.1 MG PO ONE (01:32)
[2022-07-28] MEDS ORDERED: NORMODYNE INJ 20 MG VIAL IV PRN (02:33)
[2022-07-28 03:02] LABS: BILIRUBIN,URINE NEGATIVE (NEGATIVE); BLOOD/HEMOGLOBIN,URINE NEGATIVE (NEGATIVE); GLUCOSE, URINE NEGATIVE (NEGATIVE); KETONES,URINE NEGATIVE (NEGATIVE); LEUKOCYTE ESTERASE ,URINE NEGATIVE (NEGATIVE); NITRITES,URINE NEGATIVE (NEGATIVE); PROTEIN,URINE NEGATIVE (NEGATIVE); UROBILINOGEN,URINE NORMAL (NORMAL)
[2022-07-28 03:08] LABS: APPEARANCE,URINE CLEAR (CLEAR); COLOR,URINE YELLOW (YELLOW)
--- NOTE | 2022-07-28 04:30 | EKG ---
Test Reason : HYPOSTENSIVE, CAD Blood Pressure : */* mmHG Vent. Rate : 70 BPM Atrial Rate : 70 BPM P-R Int : 176 ms QRS Dur : 78 ms QT Int : 448 ms P-R-T Axes : * 35 28 degrees QTc Int : 483 ms Normal sinus rhythm Nonspecific ST and T wave abnormality Abnormal ECG When compared with ECG of 27-JUL-2022 21:34, (Unconfirmed) CA interval has decreased Nonspecific T wave abnormality now evident in Inferior leads Referred By: Confirmed By:
[2022-07-28 04:39] LABS: BASOPHILS # (AUTO) 0.1 X10^3/uL (0.0-0.1); BASOPHILS % (AUTO) 1.5 % (0.2-1.0); EOSINOPHILS # (AUTO) 0.1 x10^3/uL (0.0-0.2); EOSINOPHILS % (AUTO) 2.2 % (0.9-2.9); HEMATOCRIT 33.5 % (42.0-54.0); HEMOGLOBIN 11.6 g/dL (13.5-18.0); LYMPHOCYTES # (AUTO) 1.3 X10^3/uL (1.3-2.9); LYMPHOCYTES % (AUTO) 22.5 % (21.0-51.0); MEAN CORPUSCULAR HEMOGLOBIN 29.5 pg (27.0-34.0); MEAN CORPUSCULAR HGB CONC 34.7 g/dL (33.0-35.0); MEAN CORPUSCULAR VOLUME 85.1 fL (80.0-100.0); MEAN PLATELET VOLUME 8.2 fL (7.4-11.0); MONOCYTES # (AUTO) 0.4 x10^3/uL (0.3-0.8); MONOCYTES % (AUTO) 6.6 % (0.0-13.0); NEUTROPHILS % (AUTO) 67.2 % (42.0-75.0); RED BLOOD COUNT 3.94 X10^6/uL (4.7-6.0); WHITE BLOOD COUNT 5.9 X10^3/uL (3.6-10.0)
[2022-07-28 04:57] LABS: ALANINE AMINOTRANSFERASE 9 Units/L (12-78); ALBUMIN 2.6 g/dL (3.4-5.0); ALKALINE PHOSPHATASE 57 Units/L (46-116); ASPARTATE AMINO TRANSFERASE 12 Units/L (15-37); BLOOD UREA NITROGEN 13 mg/dL (7-18); CALCIUM 7.7 mg/dL (8.5-10.1); CARBON DIOXIDE 21.3 mmol/L (21-32); CHLORIDE 111 mmol/L (98-107); COR CA(FOR HYPOALB) 8.8 mg/dL (8.5-10.1); CREATINE KINASE 42 Units/L (39-308); CREATININE 0.75 mg/dL (0.70-1.30); SODIUM 142 mmol/L (136-145); TOTAL PROTEIN 5.2 g/dL (6.4-8.2); eGFR NON BLACK RACES > 60 (>60)
[2022-07-28] MEDS ORDERED: KLOR-CON PO PRN (05:14)
[2022-07-28] MEDS ORDERED: K-DUR TAB 20 MEQ PO PRN (05:14)
[2022-07-28] MEDS ORDERED: POTASSIUM CHLORIDE LIQ 20 MEQ UDC PO PRN (05:14)
[2022-07-28] MEDS ORDERED: K-RIDER 10 MEQ/NS 100 ML 10 MEQ/100 ML BAG IV PRN (05:14)
[2022-07-28] MEDS ORDERED: POTASSIUM CHL 60 MEQ/NS 0.45% 500 ML IV PRN (05:14)
[2022-07-28] MEDS ORDERED: MICRO K EXTEN CAP 10 MEQ PO PRN (05:14)
[2022-07-28] MEDS ORDERED: POTASSIUM CHL 40 MEQ/NS 0.45% 500 ML IV PRN (05:14)
[2022-07-28] MEDS: MAGNESIUM SULFATE 1 GRAM/100 mL PREMIX 1 G/100 ML BAG IV PRN ×2 (05:42→08:33)
--- NOTE | 2022-07-28 07:29 | RAD ---
HISTORYHypotensionSTUDYChest AP [id number] ent is status post median sternotomy and CABG. Heart size is normal. Tarsha are normal. Lung [place] are free of acute infiltrates. There is a large hiatal hernia present. Bony thorax is unremarkable.IMPRESSIONLungs clearHiatal herniaElectronically signed by: TJ GONZALES (Jul 28, 2022 07:26:51)
[2022-07-28] MEDS: LIPITOR TAB 40 MG PO SCH (08:29)
[2022-07-28] MEDS: PLAVIX PO SCH (08:29)
[2022-07-28] MEDS: SYNTHROID 25 mcg TAB PO SCH (08:29)
[2022-07-28] MEDS: EFFEXOR XR 37.5 MG CAP 24-HR PO SCH (08:29)
[2022-07-28] MEDS: PriLOSEC PO SCH (08:29)
[2022-07-28] MEDS ORDERED: PROzac PO SCH (09:00)
[2022-07-28] MEDS ORDERED: ZESTRIL TAB 10 MG PO SCH (09:00)
[2022-07-28] MEDS: NORCO 5/325 MG TAB PO PRN (11:28)
[2022-07-28 14:09] VITALS: BP 160/79
== END 2022-07-28 15:10 | disposition home or self-care (01) ==
LOC: ICU
PROVIDERS: ADMIT Internal Medicine; ATTEND Internal Medicine
DX: I95.89 Other hypotension; E03.8 Other specified hypothyroidism; R94.31 Abnormal electrocardiogram [ECG] [EKG]; K21.9 Gastro-esophageal reflux disease without esophagitis; I25.10 Atherosclerotic heart disease of native coronary artery without angina pectoris; I50.9 Heart failure, unspecified; E86.0 Dehydration; N17.9 Acute kidney failure, unspecified; J44.9 Chronic obstructive pulmonary disease, unspecified; K44.9 Diaphragmatic hernia without obstruction or gangrene; R06.02 Shortness of breath; E78.2 Mixed hyperlipidemia; M19.90 Unspecified osteoarthritis, unspecified site; F32.89 Other specified depressive episodes; I11.0 Hypertensive heart disease with heart failure